=== PATIENT | female | born 1985 | race Caucasian/White ===

== ENCOUNTER 2018-05-11 19:26 | Inpatient (IN) | payer OTHER ==
[2018-05-11] MEDS ORDERED: Methylergonovine 0.2 MG/ML VIAL IM PRN (20:10)
[2018-05-11] MEDS ORDERED: Promethazine HCl 25 MG/ML VIAL IM PRN (20:10)
[2018-05-11] MEDS ORDERED: Lidocaine 1% (PF) 30 ML VIAL SC PRN (20:10)
[2018-05-11] MEDS ORDERED: Ondansetron PF 4 MG/2 ML Vial IVP PRN (20:10)
[2018-05-11] MEDS ORDERED: Diphenoxylate HCl/Atropine Tablet PO PRN ×2 (20:10)
[2018-05-11] MEDS ORDERED: Misoprostol 200 MCG TAB PR PRN (20:10)
[2018-05-11] MEDS ORDERED: Butorphanol Tartrate 1 MG/ML VIAL SLOW IVP PRN (20:10)
[2018-05-11] MEDS ORDERED: HYDROcodone/Acetaminophen 5/325 mg Tablet PO PRN ×2 (20:10)
[2018-05-11] MEDS ORDERED: Carboprost 250 MCG/ML AMP IM PRN (20:10)
[2018-05-11] MEDS ORDERED: Ibuprofen 800 MG TAB PO PRN (20:10)
[2018-05-11] MEDS ORDERED: NS / Oxytocin 40 units/1000ml 1,000 ML IV PRN (20:10)
[2018-05-11] MEDS ORDERED: NS w/ Oxytocin 10 units 500 ML IV SCH (20:15)
[2018-05-11] MEDS: Lactated Ringer's 1,000 ML IV SCH (20:30)
[2018-05-11] MEDS ORDERED: Oxytocin 10 UNITS/ML VIAL ONE (20:32)
[2018-05-11] MEDS ORDERED: NS w/ Oxytocin 10 units 500 ML ONE (20:33)
--- NOTE | 2018-05-11 20:33 | PDOC.LDHP ---
Labor and Delivery H&P Chief complaint: contractions, loss of fluid HPI: Patient had a large gush of clear fluid at 2230 last night which continued to leak as she got up to the toilet. Her baby was moving normally. and she started having irregular mild contractions 30 minutes later, at which time she notified Darryl Flood CNM. At 0815 she this am she met me at the office and we placed 5 dilapan inter the cervix which was 1/80/-2. She was sent home with instructions to take her temperature every hour and notify ABUNDIO if any changes in contractions pattern happened. She arrived at L&D at 22 hours of rupture time and her contractions had almost completely stopped. The baby has continued to move normally the entire time day and she has been afebrile. Current gestational age (weeks): 40 Due date: 05/09/18 Dating criteria: other (embryo implantation date) Grav: 1 Para: 0 OB History Details: IVf . Current complications: other (marginal cord insertion with serial growth monitoring.) Abnormal US findings: Yes (margianl cord insert) Past Medical History: Infertility Current medications: pre- vitamins Previous surgical history: other (Adenoids wisdom teeth laproscopic endometriosis and hysterocopic uterine septum ligation) Allergies/Adverse Reactions: Allergies Allergy/AdvReac Type Severity Reaction Status Date / Time No Allergy Information Allergy Unverified 05/11/18 20:22 Available Social history: none - Physical Exam Vital signs reviewed and normal: yes General: resting Heart: RRR Lungs: nonlabored breathing Abdomen: gravid Extremeties: trace edema FHT: category 1 - Vaginal Exam cm dilated: 4 Effacement: 75% Station: -2 - OB Labs Blood type: A RH: positive Antibody Screen: negative HIV: negative RPR: negative HEPSAg: negative 1 hour GCT: negative GBS: negative Urine drug screen: not done Rubella: immune - Assessment L&D Assessment: term rupture in membranes (x 23 hours) - Plan Plan: admit to L&D, labor augmentation if indicated (antibiotics for signs of chorio)
[2018-05-11 20:47] LABS: Hemoglobin 12.7 g/dL (12.0-16.0); Mean Corpuscular HGB CONC 34.3 g/dL (32.0-36.0); Mean Corpuscular Hemoglobin 32.8 pg (27.0-31.0); Mean Corpuscular Volume 95.7 fL (78.0-98.0); Platelet Count 177 thou/uL (130-400); RBC Distribution Width 11.9 % (11.5-14.5); Red Blood Cell (RBC) Count 3.89 mill/uL (4.20-5.40)
[2018-05-11 21:16] VITALS: BMI 26.8
[2018-05-11 21:29] LABS: Syphilis Antibody Nonreactive (Nonreactive); Syphilis Antibody Index 0.04 S/CO (<1.00 Non-Reactive)
[2018-05-11 23:47] LABS: HBSAg Index 0.23 S/CO (0-0.99); Hep B Surf Ag Non-Reactive S/CO (NonReactive)
[2018-05-12] MEDS ORDERED: Misoprostol 200 MCG TAB VAG PRN ×2 (06:47→08:16)
[2018-05-12] MEDS ORDERED: Bisacodyl 10 MG SUPP PR PRN ×2 (06:47→08:16)
[2018-05-12] MEDS ORDERED: Milk Of Magnesia 30 ML UDCUP PO PRN ×2 (06:47→08:16)
[2018-05-12] MEDS ORDERED: Adacel (T-DAP) 0.5 ML VIAL IM ONE (06:47)
[2018-05-12] MEDS ORDERED: Benzocaine/Menthol 20-0.5% 60 ML CAN TOP PRN ×2 (06:47→08:16)
[2018-05-12] MEDS ORDERED: HYDROcodone/Acetaminophen 5/325 mg Tablet PO PRN ×4 (06:47→08:16)
[2018-05-12] MEDS ORDERED: Ondansetron PF 4 MG/2 ML Vial IVP PRN (06:47)
[2018-05-12] MEDS ORDERED: Methylergonovine 0.2 MG/ML VIAL IM PRN ×2 (06:47→08:16)
--- NOTE | 2018-05-12 06:54 | PDOC.OPDEL ---
OB Operative/Delivery Note Delivery Dr/Surgeon: Darryl Flood CNM Pre-Delivery Diagnosis: ruptured membrane (with pitcoin augmentation) Procedure/Post Delivery Dx: spontaneous vaginal delivery Weeks gestation: 40 Anesthesia: none - Findings A Sex: male Weight: 6 lb 12 oz - 1 min: 8 - 5 min: 9 - Additional Findings/Plan Placenta delivered: spontaneous Repaired Obstetrical Laceration: 2nd degree Estimated blood loss: 500mL Compilations/Other Findings: marginal cord insertion Post delivery plan: routine recovery
[2018-05-12] MEDS ORDERED: NS / Oxytocin 40 units/1000ml 1,000 ML IV SCH ×2 (07:00→08:16)
[2018-05-12] MEDS ORDERED: Ferrous Sulfate 325 MG TAB PO SCH (08:00)
[2018-05-12] MEDS ORDERED: Docusate Calcium (SURFAK) 240 MG CAP PO SCH (09:00)
[2018-05-12] MEDS: Docusate Calcium (SURFAK) 240 MG CAP PO SCH ×2 (11:46→21:17)
[2018-05-12] MEDS: Ferrous Sulfate 325 MG TAB PO SCH ×2 (11:46→15:17)
[2018-05-12] MEDS: Lactated Ringer's 1,000 ML IV SCH (11:47)
[2018-05-12] MEDS: Ibuprofen 800 MG TAB PO SCH ×2 (13:49→21:17)
[2018-05-12] MEDS ORDERED: Ibuprofen 800 MG TAB PO SCH (14:00)
[2018-05-13] MEDS: Ibuprofen 800 MG TAB PO SCH ×2 (05:22→14:19)
[2018-05-13] MEDS: Ferrous Sulfate 325 MG TAB PO SCH ×2 (07:47→14:33)
[2018-05-13 08:20] VITALS: BP 116/54; TEMP 98.6
[2018-05-13] MEDS: Docusate Calcium (SURFAK) 240 MG CAP PO SCH (09:30)
== END 2018-05-13 18:20 | disposition home or self-care (01) | DRG 807 ==
LOC: L&D/OP 19:26 → L&D 05-12 00:29 → 3SW 05-12 11:51
PROVIDERS: ADMIT Student in an Organized Health Care Education/Training Program; ATTEND Student in an Organized Health Care Education/Training Program
PROC: 10E0XZZ Delivery of Products of Conception, External Approach (ICD-10-PCS; principal; 2018-05-12)
PROC: 0KQM0ZZ Repair Perineum Muscle, Open Approach (ICD-10-PCS; 2018-05-12)
DX: O43.193 Other malformation of placenta, third trimester (principal); Z37.0 Single live birth; O42.02 Full-term premature rupture of membranes, onset of labor within 24 hours of rupture; O70.1 Second degree perineal laceration during delivery; Z3A.40 40 weeks gestation of pregnancy
CPT/HCPCS: 36415; 85027; 86780; 86850; 86900; 86901; 87340; J2001; J2405; J2590

== ENCOUNTER 2019-02-10 11:44 | Day surgery (SDC) | payer OTHER ==
[~2019-02-10 11:44] MED LIST: Dexamethasone 20 MG/5 ML VIAL ONE; Glycopyrrolate 0.2 MG/ML 5 ML SYRINGE ONE; Ketorolac Tromethamine 30 MG/ML VIAL ONE; Lidocaine 1% PF 5 ML VIAL ONE; Ondansetron PF 4 MG/2 ML Vial ONE; PROPOFOL 200 MG/20 ML VIAL ONE; Rocuronium Bromide 10 MG/ML (10ML VIAL) ONE
[2019-02-10 13:29] LABS: #Eosinphils 0.1 thou/uL (0.0-0.7); #Lymphocytes 1.1 thou/uL (1.20-3.40); #Monocytes 0.3 thou/uL (0.11-0.59); #Neutrophils 6.6 thou/uL (1.40-6.50); %Basophils 0.1 % (0.0-1.0); %Eosinophils 0.6 % (0.0-10.0); %Lymphocytes 14.1 % (21.0-51.0); %Monocytes 3.9 % (0.0-10.0); %Neutrophils 81.3 % (42.0-75.0); Hemoglobin 13.4 g/dL (12.0-16.0); Mean Corpuscular HGB CONC 33.7 g/dL (32.0-36.0); Mean Corpuscular Hemoglobin 31.4 pg (27.0-31.0); Mean Corpuscular Volume 93.3 fL (78.0-98.0); Mean Platelet Volume 8.9 fL (7.4-10.4); Platelet Count 227 thou/uL (130-400); Red Blood Cell (RBC) Count 4.25 mill/uL (4.20-5.40); White Blood Cell (WBC) Count 8.1 thou/uL (4.8-10.8)
[2019-02-10] MEDS ORDERED: CeleCOXIB 100 MG CAP ONE (13:39)
[2019-02-10] MEDS ORDERED: Scopolamine 1.5 mg/72 hour Patch ONE (14:19)
[2019-02-10] MEDS ORDERED: Midazolam HCl 2 mg/2 ml Vial ONE ×2 (14:19→19:42)
[2019-02-10] MEDS ORDERED: Fentanyl 100 MCG/2 ML VIAL ONE ×2 (19:39→21:34)
[2019-02-10] MEDS ORDERED: Promethazine HCl 25 MG/ML VIAL ONE (19:39)
[2019-02-10] MEDS ORDERED: HYDROmorphone 0.5 MG/0.5 ML SYRINGE ONE (19:39)
[2019-02-10] MEDS ORDERED: Bupivacaine HCl 0.5%/Epinephrine 1:200,000/PF 30 ml Vial ONE (19:40)
[2019-02-10] MEDS ORDERED: Propofol 1,000 MG/100 ML VIAL IV ONE (19:45)
[2019-02-10] MEDS ORDERED: HYDROcodone/Acetaminophen 5/325 mg Tablet ONE (21:54)
[2019-02-10] MEDS ORDERED: Ondansetron PF 4 MG/2 ML Vial ONE (22:14)
--- NOTE | 2019-02-11 01:46 | OP ---
DATE OF PROCEDURE: 02/10/2019 PREOPERATIVE DIAGNOSIS: Ruptured left ectopic . POSTOPERATIVE DIAGNOSIS: Ruptured left ectopic . PROCEDURE PERFORMED: Laparoscopic left salpingectomy. ANESTHESIA: General endotracheal. MIDDLEWARE ARCHITECT SURGEON: None. ESTIMATED BLOOD LOSS: 100 mL of hemoperitoneum. IVF: 800 mL of crystalloid. URINE OUTPUT: 100 mL clear urine at the beginning. FINDINGS: Approximately 100 mL of clotted hemoperitoneum present in the pelvis and the upper abdomen, left-sided ruptured ectopic in the fallopian tube in the distal end. The right fallopian tube was normal appearing. The ovaries were normal bilaterally and the uterus was normal appearing. The peritoneum was without significant endometriosis. COMPLICATIONS: None. DRAINS: None. PATHOLOGY: Left fallopian tube. DESCRIPTION OF PROCEDURE: The patient was taken to the operating room, where general anesthesia was obtained without difficulty. The patient was prepped and draped in a sterile fashion in a dorsal lithotomy position. A speculum was placed in the vagina. The single-tooth Hulka was placed into the cervix. The speculum was removed. Legs were placed in low lithotomy. Attention was turned to the abdomen. A 0.5% Marcaine with epi was infiltrated into the umbilicus and a 5-mm skin incision was made in the umbilicus. Veress needle was passed into the abdomen noting an opening pressure of 0 mmHg. Pneumoperitoneum was obtained. The Veress needle was removed. A 5-mm trocar and camera were advanced into the abdomen and the Trendelenburg was obtained. A left lower quadrant 5-mm port was placed under direct visualization after infiltrating with anesthetic and making a skin incision. The above findings were noted and the grasper was used to manipulate the tube structures and take pictures. At that time, an additional 5 mm port was placed in the right lower quadrant after infiltrating with anesthetic, making skin incision under direct visualization. A grasper was used to grasp the left fallopian tube and hold it in the abdomen. LigaSure was used to sequentially clamp, cauterize from lateral to medial the fallopian tube and ectopic . There was minimal active bleeding present at the time of the surgery and once the mesosalpinx had been completely transected, the medial fallopian tube was clamped across cauterized and transected. This was placed in the anterior cul-de-sac. The pelvis was then copiously irrigated and suctioned, and all the clot was removed as well as in the upper abdomen. There were no significant endometriotic implants present in the pelvis as the patient has a history of endometriosis. The 5 mm bag was then passed into the abdomen and the fallopian tube was placed into the bag and the specimen was removed out of the abdomen. Pneumoperitoneum was released and all trocars were removed. The skin was closed with a 4-0 Monocryl in a subcuticular fashion and Dermabond was applied. The Hulka manipulator was removed out of the vagina and the cervix was hemostatic. All instruments were removed out of the vagina. The patient tolerated the procedure well. Sponge, lap, and needle counts correct x2. The patient was taken to the recovery room in stable condition. The patient had received Ancef 2 g prior to procedure. Job ID: [id number]
== END 2019-02-10 22:50 | disposition home or self-care (01) ==
LOC: SDC 11:44
PROVIDERS: ATTEND Student in an Organized Health Care Education/Training Program
PROC: 0UT64ZZ Resection of Left Fallopian Tube, Percutaneous Endoscopic Approach (ICD-10-PCS; principal; 2019-02-10)
PROC: 10T24ZZ Resection of Products of Conception, Ectopic, Percutaneous Endoscopic Approach (ICD-10-PCS; principal; 2019-02-10)
DX: O00.102 Left tubal pregnancy without intrauterine pregnancy (principal); F41.9 Anxiety disorder, unspecified; J30.89 Other allergic rhinitis; Z91.041 Radiographic dye allergy status
CPT/HCPCS: 85025; 86850; 86900; 86901; 88305; J0670; J0690; J1100; J1170; J1885; J2001; J2250; J2405; J2550; J2704; J3010